=== PATIENT | female | born 1970 | race Caucasian/White ===

== ENCOUNTER → 2019-06-24 | Emergency (ER) | payer MEDICAID, OTHER ==
[~2019-06-24] VITALS: Ht 162.6 cm; Wt 81.6 kg
[~2019-06-24] MED LIST: D5W 5% 100 ML BAG IV ONE; EPINEPHrine HCL 1 MG/10 ML SYRG IV ONE; SODIUM BICARBONATE 8.4% INJ 50ML SYRINGE IV ONE
[2019-06-24 21:42] VITALS: BP 0/0
== END | disposition expired ==
LOC: EDUNIT# 21:31 → EDBD 21:42 → ER 21:45
DX: I46.9 Cardiac arrest, cause unspecified (principal); E11.9 Type 2 diabetes mellitus without complications; I10 Essential (primary) hypertension
CPT/HCPCS: 31500; 92950; 99291; J0171; J7060